=== PATIENT | female | born 1995 | race Hispanic/Latino ===

== ENCOUNTER 2020-02-07 23:31 | Emergency (ER) | payer MEDICAID ==
[2020-02-07] MEDS ORDERED: ACETAMINOPHEN 325 MG TAB ONE (23:52)
[2020-02-07 23:54] LABS: BASOPHILS % (AUTO) 0.5 % (0.0-5.0); EOSINOPHILS % (AUTO) 0.3 % (0.0-8.0); HEMATOCRIT 36.1 % (36-48); LYMPHOCYTES % (AUTO) 21.5 % (21.0-51.0); MEAN CORPUSCULAR HEMOGLOBIN 28.7 pg (27.0-33.0); MEAN CORPUSCULAR HGB CONC 34.6 g/dL (32.0-36.0); PLATELET COUNT (AUTO) 284 K/uL (130-400); RED BLOOD CELL COUNT(AUTO) 4.35 MIL/uL (4.00-5.50); RED CELL DISTRIBUTION WIDTH 14.2 % (11.0-15.5)
[2020-02-07 23:58] LABS: APPEARANCE,URINE Cloudy (CLEAR); BILIRUBIN,URINE Negative (NEGATIVE); COLOR,URINE Dark Yellow (YELLOW); GLUCOSE, URINE (UA) Negative (NEGATIVE); KETONES,URINE 40 mg/dL (NEGATIVE); LEUKOCYTE ESTERASE ,URINE Small (NEGATIVE); NITRATE,URINE Negative (NEGATIVE); OCCULT BLOOD,URINE Negative (NEGATIVE); PROTEIN,URINE POS 2+ mg/dL (NEGATIVE)
[2020-02-08 00:05] LABS: AMPHET/METH SCREEN,URINE NEGATIVE (NEGATIVE); BARBITURATE SCREEN, URINE NEGATIVE (NEGATIVE); BENZODIAZEPINES SCREEN,URINE POSITIVE (NEGATIVE); CANNABINOID SCREEN,URINE POSITIVE (NEGATIVE); COCAINE SCREEN,URINE NEGATIVE (NEGATIVE); OPIATE SCREEN,URINE NEGATIVE (NEGATIVE); PHENCYCLIDINE SCREEN,URINE NEGATIVE (NEGATIVE)
[2020-02-08 00:08] LABS: HCG,QUAL RESULT NEGATIVE (NEGATIVE)
[2020-02-08 00:10] LABS: BACTERIA,URINE Rare /HPF (None Seen); WBC,URINE 0-1 /HPF (0-1)
[2020-02-08 00:14] LABS: CARBON DIOXIDE 23 mmol/L (21-32); CHLORIDE 99 mmol/L (101-111); CREATININE 0.9 mg/dL (0.5-1.5); GLOMERULAR FILTR. RATE CALC 80 mL/min (>60); GLUCOSE,RANDOM 141 mg/dL (70-105); POTASSIUM 3.4 mmol/L (3.5-5.1); SODIUM SERUM 136 mmol/L (136-145); UREA NITROGEN, BLOOD 9 mg/dL (7-18)
[2020-02-08 00:18] LABS: ALANINE AMINOTRANSFERASE 32 U/L (12-78); ASPARTATE AMINOTRANSFERASE 21 U/L (10-37); BILIRUBIN,TOTAL 0.3 mg/dL (0.2-1.0); TOTAL PROTEIN, SERUM 8.2 g/dL (6.0-8.3)
[2020-02-08 00:23] LABS: ACETAMINOPHEN < 1 mcg/mL (10-30); SALICYLATE < 2.8 mg/dL (2.8-20.0)
[2020-02-08] MEDS ORDERED: POTASSIUM CHLORIDE 20 MEQ ERTAB PO ONE (00:54)
== END 2020-02-08 01:59 | disposition home or self-care (01) ==
LOC: EDH 23:31
DX: G40.89 Other seizures (principal); E86.0 Dehydration
CPT/HCPCS: 36415; 80053; 80305; 81001; 81025; 85025; 99283; G0481

== ENCOUNTER 2022-04-14 06:50 | Emergency (ER) | payer MEDICAID ==
[~2022-04-14] VITALS: Ht 144.8 cm; Wt 45.4 kg
[2022-04-14 06:51] VITALS: BP 115/45
[2022-04-14 07:22] LABS: BASOPHILS % (AUTO) 0.3 % (0.0-5.0); CREATININE 0.7 mg/dL (0.5-1.5); EOSINOPHILS % (AUTO) 0.6 % (0.0-8.0); HEMATOCRIT 32.9 % (36-48); LYMPHOCYTES % (AUTO) 32.8 % (21.0-51.0); MEAN CORPUSCULAR HEMOGLOBIN 30.5 pg (27.0-33.0); MEAN CORPUSCULAR HGB CONC 34.3 g/dL (32.0-36.0); MEAN CORPUSCULAR VOLUME 88.7 fL (79-99); MONOCYTES % (AUTO) 6.6 % (3.0-13.0); NEUTROPHILS % (AUTO) 58.8 % (40.0-77.0); PLATELET COUNT (AUTO) 220 K/uL (130-400); POTASSIUM 3.1 mmol/L (3.5-5.1); RED BLOOD CELL COUNT(AUTO) 3.71 MIL/uL (4.00-5.50); RED CELL DISTRIBUTION WIDTH 13.1 % (11.0-15.5); WHITE BLOOD COUNT (AUTO) 6.4 K/uL (4.8-10.8)
[2022-04-14 07:27] LABS: ALBUMIN 3.3 g/dL (3.5-5.0); TOTAL PROTEIN, SERUM 7.1 g/dL (6.0-8.3)
[2022-04-14] MEDS ORDERED: TETANUS/DIPHTHERIA TOXOID [ADULT] 0.5 ML VIAL IM ONE (07:30)
[2022-04-14] MEDS ORDERED: KETOROLAC 15MG/ML VIAL (15MG/ML) ONE (07:39)
[2022-04-14] MEDS ORDERED: MORPHINE 2 MG SYG ONE (07:39)
[2022-04-14] MEDS ORDERED: MORPHINE 2 MG SYG IVP ONE (08:00)
[2022-04-14] MEDS ORDERED: KETOROLAC 15MG/ML VIAL (15MG/ML) IV ONE (08:00)
[2022-04-14] MEDS ORDERED: ACET-2079 PO (08:42)
[2022-04-14] MEDS ORDERED: IBUP-2070 PO (08:42)
[2022-04-14] MEDS ORDERED: HYDROCODONE/ACETAMINOPHEN 10/325 MG TAB PO ONE (09:00)
== END 2022-04-14 09:09 | disposition home or self-care (01) ==
LOC: EDH 06:50
DX: S81.811A Laceration without foreign body, right lower leg, initial encounter (principal); F41.9 Anxiety disorder, unspecified; Z79.899 Other long term (current) drug therapy; X99.8XXA Assault by other sharp object, initial encounter; Y93.89 Activity, other specified; Y92.89 Other specified places as the place of occurrence of the external cause; Y99.8 Other external cause status
CPT/HCPCS: 99284; 96374; 96375; 80053; 84703; 85025; 36415; 90714; 73590; 90471; 12001; J1885

== ENCOUNTER 2022-04-29 02:06 | Emergency (ER) | payer MEDICAID ==
[~2022-04-29] VITALS: Ht 149.9 cm; Wt 51.3 kg
[2022-04-29 03:15] LABS: BASOPHILS % (AUTO) 0.6 % (0.0-5.0); EOSINOPHILS % (AUTO) 1.1 % (0.0-8.0); HEMATOCRIT 30.9 % (36-48); LYMPHOCYTES % (AUTO) 17.6 % (21.0-51.0); MEAN CORPUSCULAR HEMOGLOBIN 29.8 pg (27.0-33.0); MEAN CORPUSCULAR VOLUME 87.8 fL (79-99); MONOCYTES % (AUTO) 7.2 % (3.0-13.0); NEUTROPHILS % (AUTO) 72.2 % (40.0-77.0); PLATELET COUNT (AUTO) 235 K/uL (130-400); RED BLOOD CELL COUNT(AUTO) 3.52 MIL/uL (4.00-5.50); RED CELL DISTRIBUTION WIDTH 12.8 % (11.0-15.5); WHITE BLOOD COUNT (AUTO) 6.2 K/uL (4.8-10.8)
[2022-04-29 03:26] LABS: CREATININE 0.8 mg/dL (0.5-1.5); POTASSIUM 4.8 mmol/L (3.5-5.1)
[2022-04-29 03:33] LABS: ALBUMIN 3.6 g/dL (3.5-5.0); TOTAL PROTEIN, SERUM 7.3 g/dL (6.0-8.3)
[2022-04-29 03:34] LABS: AMPHET/METH SCREEN,URINE NEGATIVE (NEGATIVE); BARBITURATE SCREEN, URINE NEGATIVE (NEGATIVE); BENZODIAZEPINES SCREEN,URINE POSITIVE (NEGATIVE); CANNABINOID SCREEN,URINE NEGATIVE (NEGATIVE); COCAINE SCREEN,URINE NEGATIVE (NEGATIVE); OPIATE SCREEN,URINE NEGATIVE (NEGATIVE); PHENCYCLIDINE SCREEN,URINE NEGATIVE (NEGATIVE)
[2022-04-29 04:07] VITALS: BP 108/66
== END 2022-04-29 04:37 | disposition home or self-care (01) ==
LOC: EDH 02:06
DX: R56.9 Unspecified convulsions (principal)
CPT/HCPCS: 36415; 80053; 80305; 82550; 84146; 85025

== ENCOUNTER 2022-07-18 21:55 | Emergency (ER) | payer MEDICAID ==
[2022-07-18 22:45] LABS: BASOPHILS % (AUTO) 0.9 % (0.0-5.0); EOSINOPHILS % (AUTO) 2.5 % (0.0-8.0); HEMATOCRIT 34.9 % (36-48); LYMPHOCYTES % (AUTO) 28.3 % (21.0-51.0); MEAN CORPUSCULAR HEMOGLOBIN 26.7 pg (27.0-33.0); MEAN CORPUSCULAR HGB CONC 32.4 g/dL (32.0-36.0); MEAN CORPUSCULAR VOLUME 82.5 fL (79-99); NEUTROPHILS % (AUTO) 62.4 % (40.0-77.0); PLATELET COUNT (AUTO) 304 K/uL (130-400); RED BLOOD CELL COUNT(AUTO) 4.23 MIL/uL (4.00-5.50); RED CELL DISTRIBUTION WIDTH 14.7 % (11.0-15.5); WHITE BLOOD COUNT (AUTO) 4.4 K/uL (4.8-10.8)
[2022-07-18 22:51] LABS: APPEARANCE,URINE CLEAR (CLEAR); BILIRUBIN,URINE NEGATIVE (NEGATIVE); COLOR,URINE COLORLESS (YELLOW); GLUCOSE, URINE (UA) NEGATIVE (NEGATIVE); HCG,QUALITATIVE URINE NEGATIVE (NEGATIVE); KETONES,URINE NEGATIVE (NEGATIVE); LEUKOCYTE ESTERASE ,URINE NEGATIVE Leu/uL (NEGATIVE); NITRATE,URINE NEGATIVE (NEGATIVE); OCCULT BLOOD,URINE MODERATE (NEGATIVE); PH,URINE 5.5 (5.0-8.0); PROTEIN,URINE NEGATIVE (NEGATIVE); UROBILINOGEN,URINE 0.2 mg/dL (0.2-1.0)
[2022-07-18 22:55] LABS: CARBON DIOXIDE 23 mmol/L (21-32); CHLORIDE 105 mmol/L (101-111); CREATININE 0.8 mg/dL (0.5-1.5); GLOMERULAR FILTR. RATE CALC 91 mL/min (>60); GLUCOSE,RANDOM 91 mg/dL (70-105); POTASSIUM 3.8 mmol/L (3.5-5.1); SODIUM SERUM 139 mmol/L (136-145); UREA NITROGEN, BLOOD 11 mg/dL (7-18)
[2022-07-18 22:57] LABS: AMPHET/METH SCREEN,URINE NEGATIVE (NEGATIVE); BARBITURATE SCREEN, URINE NEGATIVE (NEGATIVE); BENZODIAZEPINES SCREEN,URINE POSITIVE (NEGATIVE); CANNABINOID SCREEN,URINE POSITIVE (NEGATIVE); COCAINE SCREEN,URINE NEGATIVE (NEGATIVE); OPIATE SCREEN,URINE NEGATIVE (NEGATIVE); PHENCYCLIDINE SCREEN,URINE NEGATIVE (NEGATIVE)
[2022-07-18 23:00] LABS: ALANINE AMINOTRANSFERASE 15 U/L (12-78); ALBUMIN 3.4 g/dL (3.5-5.0); ALCOHOL, BLOOD 53 mg/dL (0-10); ASPARTATE AMINOTRANSFERASE 17 U/L (10-37); TOTAL PROTEIN, SERUM 7.3 g/dL (6.0-8.3)
[2022-07-18 23:02] LABS: BACTERIA,URINE RARE /HPF (None Seen); MUCUS,URINE RARE LPF (None Seen)
[2022-07-18 23:04] LABS: ACETAMINOPHEN < 1 mcg/mL (10-30); SALICYLATE < 2.8 mg/dL (2.8-20.0)
[2022-07-19] MEDS ORDERED: IOHEXOL-350 50ML VIAL IV ONE (01:52)
[2022-07-19 10:44] VITALS: BP 95/45
== END 2022-07-19 11:45 ==
LOC: EDH 21:55
DX: R45.851 Suicidal ideations (principal); F32.A Depression, unspecified; Z20.822 Contact with and (suspected) exposure to COVID-19
CPT/HCPCS: 99285; 70450; 71045; 87635; 84484; 80053; 80305; 85025; 81001; 81025; 36415; 93005; G0481; C9803; Q9967

== ENCOUNTER 2023-11-06 16:54 | Emergency (ER) | payer MEDICAID, OTHER ==
[~2023-11-06] VITALS: Ht 144.8 cm; Wt 52.2 kg
[2023-11-06] MEDS: FAMOTIDINE 20MG VIAL IV ONE (17:29)
[2023-11-06] MEDS: METOCLOPRAMIDE 10 MG/2 ML VIAL IVP ONE (17:29)
[2023-11-06] MEDS: 0.9%NACL 1000ML 1,000 ML IV ONE (17:29)
[2023-11-06 17:37] LABS: BASOPHILS # (AUTO) 0.05 K/uL (0.00-0.20); BASOPHILS % (AUTO) 0.3 % (0.0-5.0); EOSINOPHILS # (AUTO) 0.01 K/uL (0.00-0.70); EOSINOPHILS % (AUTO) 0.1 % (0.0-8.0); HEMATOCRIT 38.2 % (36-48); IMMATURE GRANULOCYTE ABSOLUTE 0.24 K/uL (0-1); LYMPHOCYTES # (AUTO) 1.3 K/uL (1.0-4.8); LYMPHOCYTES % (AUTO) 8.5 % (21.0-51.0); MEAN CORPUSCULAR HEMOGLOBIN 30.4 pg (27.0-33.0); MEAN CORPUSCULAR HGB CONC 35.9 g/dL (32.0-36.0); MEAN CORPUSCULAR VOLUME 84.9 fL (79-99); MONOCYTES # (AUTO) 0.9 K/uL (0.1-1.0); MONOCYTES % (AUTO) 5.8 % (3.0-13.0); NEUTROPHILS # (AUTO) 12.3 K/uL (1.8-7.7); NEUTROPHILS % (AUTO) 83.7 % (40.0-77.0); PLATELET COUNT (AUTO) 316 K/uL (130-400); RED CELL DISTRIBUTION WIDTH 12.3 % (11.0-15.5); WHITE BLOOD COUNT (AUTO) 14.7 K/uL (4.8-10.8)
[2023-11-06 17:56] LABS: APPEARANCE,URINE CLEAR (CLEAR); BILIRUBIN,URINE NEGATIVE (NEGATIVE); COLOR,URINE YELLOW (YELLOW); GLUCOSE, URINE (UA) NEGATIVE (NEGATIVE); KETONES,URINE 40 mg/dL (NEGATIVE); LEUKOCYTE ESTERASE ,URINE NEGATIVE Leu/uL (NEGATIVE); NITRATE,URINE NEGATIVE (NEGATIVE); OCCULT BLOOD,URINE NEGATIVE (NEGATIVE); PROTEIN,URINE 70 mg/dL (NEGATIVE)
[2023-11-06 17:59] LABS: ADD UA MICROSCOPIC YES
[2023-11-06 18:02] LABS: AMPHET/METH SCREEN,URINE NEGATIVE (NEGATIVE); BARBITURATE SCREEN, URINE NEGATIVE (NEGATIVE); BENZODIAZEPINES SCREEN,URINE NEGATIVE (NEGATIVE); CANNABINOID SCREEN,URINE POSITIVE (NEGATIVE); COCAINE SCREEN,URINE NEGATIVE (NEGATIVE); OPIATE SCREEN,URINE NEGATIVE (NEGATIVE); PHENCYCLIDINE SCREEN,URINE NEGATIVE (NEGATIVE)
[2023-11-06 18:17] LABS: ALANINE AMINOTRANSFERASE 91 U/L (12-78); ALBUMIN 4.2 g/dL (3.5-5.0); ALCOHOL, BLOOD < 3 mg/dL (0-10); ASPARTATE AMINOTRANSFERASE 44 U/L (10-37); BILIRUBIN,TOTAL 1.4 mg/dL (0.2-1.0); CARBON DIOXIDE 30 mmol/L (21-32); CREATININE 0.8 mg/dL (0.5-1.0); GLOMERULAR FILTR. RATE CALC 102 mL/min (>90); GLUCOSE,RANDOM 117 mg/dL (70-105); HCG,QUANTITATIVE 107073 mIU/mL (0-5); SODIUM SERUM 132 mmol/L (136-145); TOTAL PROTEIN, SERUM 8.5 g/dL (6.0-8.3); UREA NITROGEN, BLOOD 22 mg/dL (7-18)
[2023-11-06 18:21] LABS: ACETAMINOPHEN < 1 mcg/mL (10-30); SALICYLATE < 2.8 mg/dL (2.8-20.0)
[2023-11-06 18:23] LABS: CHLORIDE 90 mmol/L (101-111); POTASSIUM 2.6 mmol/L (3.5-5.1)
[2023-11-06 18:25] LABS: RBC,URINE 0-1 /HPF (0-1)
[2023-11-06 18:26] LABS: BACTERIA,URINE Few /HPF (None Seen); SQUAMOUS EPITHELIAL CELL,UR Few /HPF (0-2)
[2023-11-06] MEDS: POTASSIUM BICARB/CIT AC 25 MEQ TABLET.EFF PO ONE (19:02)
[2023-11-06] MEDS: ONDANSETRON 4MG INJ IVP ONE (20:40)
[2023-11-06] MEDS: ONDANSETRON 4MG INJ ONE (20:41)
[2023-11-06] MEDS ORDERED: ONDA-243 PO (21:02)
[2023-11-06 21:20] VITALS: BP 134/82; PULSE 92; RESP 18; O2SAT 99
== END 2023-11-06 21:34 | disposition home or self-care (01) ==
LOC: EDH 16:54
DX: O26.891 Other specified pregnancy related conditions, first trimester (principal); F13.239 Sedative, hypnotic or anxiolytic dependence with withdrawal, unspecified; F12.23 Cannabis dependence with withdrawal; E87.6 Hypokalemia; O21.9 Vomiting of pregnancy, unspecified; R10.2 Pelvic and perineal pain
CPT/HCPCS: 99284; 96374; 96375; 96361; 80053; 80305; 84703; 84702; 85025; 36415; 81001; G0481; J7030; J2405; J2765; S0028; 96376; J3490